=== PATIENT | female | born 1955 | race Caucasian/White ===

== ENCOUNTER → 2016-09-30 | Outpatient (CLI) | payer OTHER ==
[~2016-09-30] MED LIST: ALPRAZOLAM0.5 MG PO; AMLODIPINE BESYL5 MG PO; ASPIRIN81 M1 PO; ASPIRIN81 M2 PO; ATENOLOL PO; ATENOLOL50 MG PO; COATED ASPIRIN325 M1 PO; DICLOFENAC-MIS1 EAC2 PO; FLUOXETINE HCL20 M1 PO; FLUOXETINE HCL40 M1 PO; FLUOXETINE HCL60 MG PO; ISOSORBIDE DINI30 MG PO; ISOSORBIDE MONO30 MG PO; LIPITOR40 MG PO; LISINOPRIL20 MG PO; LOPID600 MG PO; MELATONIN10 M1 PO; NITROSTAT0.4 MG SL; PROZAC40 MG PO; RANITIDINE HCL300 M1 PO; RANITIDINE HCL300 MG PO; SARAFEM20 MG PO; SENOKOT S1 TAB PO; SIMVASTATIN20 MG PO; TYLENOL #3 PO; TYLENOL/CODEINE1 TAB PO; ZESTRIL40 MG PO
--- NOTE | ~2016-09-30 | MY29 ---
[facility] A Service of [facility] RADIOLOGY TEXT RESULTS PATIENT: HONEY LUCIANO LOCATION: [facility] : 55 UNIT #: [id number] AGE: [address]: [place]IVER [place]LE SEX: F ORDER DR: [id number] [facility] [address] [place], [place] [address] [id number] O MR#: [id number] Acc #: [id number] NAME: HONEY LUCIANO. : 1955 SEX: F STUDY DATE/TIME: 09/30/2016 8:52 UNIT: [facility] ROOM: STUDY DESCRIPTION: MY RACQUEL SCREENING W/ CAD BILAT Attending Physician: Paul Abraham Ordering Physician: Paul Abraham Primary Care Physician: Sherice Andrade M.D. MEDICAL IMAGING REPORT This report is preliminary unless electronic signature is present EXAM Digital screening mammogram, 09/30/2016 HISTORY 61-year-old woman positive family history, paternal grandmother. Annual screening. COMPARISON 02/23/2013, 10/04/2014 FINDINGS Digital imaging of each breast was completed utilizing a two-view examination of each breast in craniocaudal and mediolateral-oblique projections. Review and interpretation of digital mammograms include a second review in conjunction with FDA-approved CAD device. There is a normal parenchymal presentation bilaterally consistent with the patient's age. There are no breast masses imaged and no parenchymal asymmetry is visualized. There are no suspicious microcalcifications and I see no focal architectural disturbance. IMPRESSION Negative screening digital mammogram. One-year followup recommended. Patients over the age of 40 are entered into a reminder system with target due date for the next mammogram. A result letter will also be sent to the patient. BIRADS: 1 Negative Dictated by... Floyd Regan M.D. THIS IS AN ELECTRONICALLY VERIFIED REPORT [facility] A Service of [facility] RADIOLOGY TEXT RESULTS PATIENT: HONEY LUCIANO LOCATION: [facility] : 55 UNIT #: [id number] AGE: [address]: OLIVER [place]LE SEX: F ORDER DR: Floyd Regan M.D. at 09/30/2016 10:55 AM AGUEDA/meg TD: 09/30/2016 10:28 JOB #: [id number] MEDICAL IMAGING REPORT Page 1 of 1 COPY
== END | disposition home or self-care (01) ==
LOC: CWCC 08:37
DX: Z12.31 Encounter for screening mammogram for malignant neoplasm of breast (principal); Z80.3 Family history of malignant neoplasm of breast
CPT/HCPCS: G0202